=== PATIENT | male | born 1965 | race African-American/Black ===

== ENCOUNTER 2018-05-12 11:07 | Emergency (ER) | payer MEDICARE, MEDICAID ==
[2018-05-12] MEDS ORDERED: NORMAL SALINE 500 ML IV ONE (11:38)
[2018-05-12] MEDS ORDERED: ONDANSETRON HCL INJ/PF 4 MG/2 ML SDV IV ONE (11:40)
[2018-05-12] MEDS ORDERED: KETOROLAC TROMETHAMINE INJ/PF 30 MG/1 ML SDV IV ONE (11:41)
--- NOTE | 2018-05-12 11:43 | ER Document Report ---
ED Medical Screen (RME) - General Chief Complaint: Flank Pain Stated Complaint: LEFT SIDE PAIN, HEAD PAIN Time Seen by Provider: 05/12/18 11:34 Mode of Arrival: Ambulatory Information source: Patient Notes: Patient complained of left flank pain which has all been going for the past 1 week associated with nausea and vomiting. Patient denies chest pain or shortness of breath. I have greeted and performed a rapid initial assessment of this patient. A comprehensive ED assessment and evaluation of the patient, analysis of test results and completion of the medical decision making process will be conducted by additional ED providers. TRAVEL OUTSIDE OF THE [place] IN LAST 30 DAYS: No - Related Data Allergies/Adverse Reactions: No Known Allergies Allergy (Unverified 05/12/18 11:07) Past Medical History - Social History Chew tobacco use (# tins/day): No Frequency of alcohol use: None Drug Abuse: None Pulmonary Medical History: Reports: Hx Asthma Renal/ Medical History: Denies: Hx Peritoneal Dialysis GI Medical History: Reports: Hx Gastroesophageal Reflux Disease Psychiatric Medical History: Reports: Hx Bipolar Disorder Past Surgical History: Reports: Hx Abdominal Surgery, Hx Urinary Tract Surgery Physical Exam - Vital signs Vitals: Temp Pulse Resp BP Pulse Ox 98.5 F 105 H 19 125/81 99 05/12/18 11:11 05/12/18 11:11 05/12/18 11:11 05/12/18 11:11 05/12/18 11:11 Course - Vital Signs Vital signs: Temp Pulse Resp BP Pulse Ox 98.5 F 105 H 19 125/81 99 05/12/18 11:11 05/12/18 11:11 05/12/18 11:11 05/12/18 11:11 05/12/18 11:11 Doctor's Discharge - Discharge Referrals: LAURI ESCOBAR MD [Primary Care Provider] - Follow up as needed
[2018-05-12 12:12] LABS: ABSOLUTE EOSINOPHILS # (AUTO) 0.2 10^3/uL (0.0-0.6); ABSOLUTE LYMPHOCYTES (AUTO) 1.7 10^3/uL (0.5-4.7); ABSOLUTE MONOCYTES (AUTO) 0.7 10^3/uL (0.1-1.4); ABSOLUTE NEUT (AUTO) 4.5 10^3/uL (1.7-8.2); BASOPHILS % (AUTO) 0.6 % (0-2); EOSINOPHILS % (AUTO) 2.9 % (0-6); HEMATOCRIT 46.6 % (37.9-51.0); HEMOGLOBIN 16.1 g/dL (13.5-17.0); LYMPHOCYTES % (AUTO) 23.5 % (13-45); MEAN CORPUSCULAR HEMOGLOBIN 31.3 pg (27.0-33.4); MEAN CORPUSCULAR HGB CONC 34.5 g/dL (32.0-36.0); MEAN CORPUSCULAR VOLUME 91 fl (80-97); MONOCYTES % (AUTO) 10.2 % (3-13); PLATELET COUNT 293 10^3/uL (150-450); RED BLOOD COUNT 5.14 10^6/uL (4.35-5.55); RED CELL DISTRIBUTION WIDTH 14.7 % (11.5-14.0); SEGMENTED NEUTROPHILS % (AUTO) 62.8 % (42-78); TOTAL CELLS COUNTED % (AUTO) 100 %; WHITE BLOOD COUNT 7.1 10^3/uL (4.0-10.5)
[2018-05-12 12:30] LABS: APPEARANCE,URINE CLEAR; BILIRUBIN,URINE NEGATIVE (NEGATIVE); COLOR,URINE STRAW; GLUCOSE, URINE NEGATIVE (NEGATIVE); KETONES,URINE NEGATIVE (NEGATIVE); LEUKOCYTE ESTERASE,URINE TRACE (NEGATIVE); NITRITE,URINE NEGATIVE (NEGATIVE); PROTEIN,URINE 30 mg/dL (NEGATIVE); URINE SPECIFIC GRAVITY 1.025
[2018-05-12 12:39] LABS: ALANINE AMINOTRANSFERASE 20 U/L (21-72); ALBUMIN 4.5 g/dL (3.5-5.0); ALKALINE PHOSPHATASE 68 U/L (38-126); ANION GAP 6 (5-19); ASPARTATE AMINO TRANSFERASE 33 U/L (17-59); BILIRUBIN,DIRECT 0.4 mg/dL (0.0-0.4); BILIRUBIN,TOTAL 0.8 mg/dL (0.2-1.3); BLOOD UREA NITROGEN 17 mg/dL (7-20); CALCIUM 10.1 mg/dL (8.4-10.2); CARBON DIOXIDE 29 mmol/L (22-30); CHLORIDE 106 mmol/L (98-107); GLUCOSE 93 mg/dL (75-110); LIPASE 42.5 U/L (23-300); POTASSIUM 4.4 mmol/L (3.6-5.0); SODIUM 140.8 mmol/L (137-145); TOTAL PROTEIN 8.4 g/dL (6.3-8.2)
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
--- NOTE | 2018-05-12 14:19 | RADIOLOGY REPORT (SQ) ---
EXAM DESCRIPTION: ACUTE ABDOMEN SERIES COMPLETED DATE/TIME: 05/12/2018 1:48 pm REASON FOR STUDY: left flank and abdominal pain COMPARISON: None. NUMBER OF VIEWS: Three views. TECHNIQUE: Frontal chest, supine abdomen and upright abdomen radiographic images acquired. LIMITATIONS: None. FINDINGS: CHEST: Lungs clear of infiltrates. No cardiomegaly. No pneumothorax or pleural effusion. FREE AIR: None. No abnormal gas collections. BOWEL GAS PATTERN: Nonobstructive nonspecific pattern. No dilated loops or air fluid levels. CALCIFICATIONS: No suspicious calcifications. HARDWARE: None in the abdomen. SOFT TISSUES: No gross mass or suggestion of organomegaly. BONES: No acute fracture. No worrisome bone lesions. OTHER: No other significant finding. IMPRESSION: NO RADIOGRAPHIC EVIDENCE FOR ACUTE ABDOMINAL DISEASE. TECHNICAL DOCUMENTATION: JOB ID: [id number] [employer]- All Rights Reserved Reading location - IP/workstation name: [email or web address]
[2018-05-12] MEDS ORDERED: ONDANSETRON ODT 4 MG TAB (6 TAB/ER DISP) ONE (16:13)
[2018-05-12] MEDS ORDERED: ONDANSETRON ODT 4 MG TAB (6 TAB/ER DISP) PO PRN (16:24)
[2018-05-12 20:23] VITALS: BP 118/58
== END 2018-05-12 16:30 | disposition home or self-care (01) ==
LOC: ER 11:07
DX: R10.9 Unspecified abdominal pain (principal); R51 Headache; R11.2 Nausea with vomiting, unspecified; J45.909 Unspecified asthma, uncomplicated
CPT/HCPCS: 99284; 96361; 96374; 36415; 87086; 83690; 85025; 80053; 81001; 74022; J1885; J2405; A9270

== ENCOUNTER 2018-12-10 09:49 | Day surgery (SDC) | payer MEDICARE, MEDICAID ==
[~2018-12-10 09:49] MED LIST: PROPOFOL INJ 200 MG/20 ML VIAL IV ONE
[2018-12-10 12:20] VITALS: BP 115/72
--- NOTE | 2018-12-10 12:53 | Operative Report ---
Operative Report DATE OF SURGERY: 12/10/18 Operative Report: The risks, benefits and alternatives of the procedure including the risk of bleeding, perforation requiring surgery have been explained to the patient in detail and informed consent has been obtained. Patient was taken back to the endoscopy suite and placed in a left, lateral decubital position. Timeout was called. Propofol medication is administered. A rectal examination is done which did not reveal any masses, tears or fissures. An Olympus videoscope was introduced into the patient's rectum. Scope was then carefully advanced all the way to the cecum. Cecum was identified by the usual anatomical landmarks including the ileocecal valve as well as the appendiceal office. Photodocumentation was obtained. Scope was then sequentially pulled back via the rest segments of the colon including the ascending colon, hepatic flexure, transverse colon, splenic flexure, descending colon and finally into the rectosigmoid portions of the colon. Retroflexion maneuver was performed. Patient has an inadequate prep. PREOPERATIVE DIAGNOSIS: Personal history of polyps POSTOPERATIVE DIAGNOSIS: Due to the prep presence or absence of polyps cannot be commented. Random biopsies taken of the right side of the colon. Internal hemorrhoids OPERATION: Colonoscopy with biopsy SURGEON: SIMONE MAYA ANESTHESIA: LMAC TISSUE REMOVED OR ALTERED: As noted above. COMPLICATIONS: None. ESTIMATED BLOOD LOSS: None. INTRAOPERATIVE FINDINGS: As noted above. PROCEDURE: Patient tolerated the procedure well. No immediate postprocedure complications are noted. Patient discharged in good condition. Discharge date 12/10/2018. Discharge diet: Regular. Discharge activity: Regular. 2-3-week follow-up to discuss findings. Patient is instructed to call the office or proceed to the emergency room should there be any further proximal questions. Wait on the pathology. Given the inadequate prep I would recommend a 1 year surveillance colonoscopy.
--- NOTE | 2018-12-10 20:04 | EKG REPORT ---
SEVERITY:- ABNORMAL ECG - SINUS RHYTHM FIRST DEGREE AV BLOCK : Confirmed by: Malini Madrid MD 10-Dec-2018 20:04:11
== END 2018-12-10 12:10 | disposition home or self-care (01) ==
LOC: END 09:49
PROVIDERS: ATTEND Internal Medicine Gastroenterology
DX: Z12.11 Encounter for screening for malignant neoplasm of colon (principal); K64.8 Other hemorrhoids; J45.909 Unspecified asthma, uncomplicated; E11.9 Type 2 diabetes mellitus without complications; R06.00 Dyspnea, unspecified; D64.9 Anemia, unspecified; G80.9 Cerebral palsy, unspecified; I49.9 Cardiac arrhythmia, unspecified
CPT/HCPCS: 45380; 88305 ×2; 93005; 93010; J2704; 811

== ENCOUNTER → 2019-01-29 | Outpatient (CLI) | payer MEDICARE, MEDICAID ==
[2019-01-29 13:17] LABS: ABSOLUTE EOSINOPHILS # (AUTO) 0.1 10^3/uL (0.0-0.6); ABSOLUTE LYMPHOCYTES (AUTO) 1.5 10^3/uL (0.5-4.7); ABSOLUTE MONOCYTES (AUTO) 0.5 10^3/uL (0.1-1.4); ABSOLUTE NEUT (AUTO) 2.3 10^3/uL (1.7-8.2); BASOPHILS % (AUTO) 0.6 % (0-2); EOSINOPHILS % (AUTO) 2.8 % (0-6); HEMATOCRIT 46.2 % (37.9-51.0); HEMOGLOBIN 15.7 g/dL (13.5-17.0); LYMPHOCYTES % (AUTO) 33.6 % (13-45); MEAN CORPUSCULAR HEMOGLOBIN 30.6 pg (27.0-33.4); MEAN CORPUSCULAR VOLUME 90 fl (80-97); MONOCYTES % (AUTO) 10.8 % (3-13); PLATELET COUNT 275 10^3/uL (150-450); RED BLOOD COUNT 5.14 10^6/uL (4.35-5.55); RED CELL DISTRIBUTION WIDTH 14.5 % (11.5-14.0); SEGMENTED NEUTROPHILS % (AUTO) 52.2 % (42-78); TOTAL CELLS COUNTED % (AUTO) 100 %; WHITE BLOOD COUNT 4.4 10^3/uL (4.0-10.5)
[2019-01-29 13:40] LABS: ALANINE AMINOTRANSFERASE 12 U/L (21-72); ALBUMIN 4.5 g/dL (3.5-5.0); ALKALINE PHOSPHATASE 70 U/L (38-126); ANION GAP 9 (5-19); ASPARTATE AMINO TRANSFERASE 24 U/L (17-59); BILIRUBIN,DIRECT 0.2 mg/dL (0.0-0.4); BILIRUBIN,TOTAL 0.5 mg/dL (0.2-1.3); BLOOD UREA NITROGEN 16 mg/dL (7-20); CALCIUM 10.8 mg/dL (8.4-10.2); CARBON DIOXIDE 30 mmol/L (22-30); CHLORIDE 103 mmol/L (98-107); CHOLESTEROL 211.01 mg/dL (0-200); GLUCOSE 85 mg/dL (75-110); POTASSIUM 5.2 mmol/L (3.6-5.0); SODIUM 141.6 mmol/L (137-145); TOTAL PROTEIN 7.8 g/dL (6.3-8.2); TRIGLYCERIDES 55 mg/dL (<150)
[2019-01-29 13:51] LABS: DIRECT LDL 108 mg/dL (<100)
[2019-01-29 13:53] LABS: FREE T4 (FREE THYROXINE) 1.18 ng/dL (0.78-2.19)
[2019-01-29 14:07] LABS: THYROID STIMULATING HORMONE 0.06 uIU/mL (0.47-4.68)
== END ==
LOC: OD 11:57
PROVIDERS: ATTEND Psychiatry & Neurology Psychiatry
DX: F31.9 Bipolar disorder, unspecified (principal); Z79.899 Other long term (current) drug therapy
CPT/HCPCS: 36415; 80048; 80076; 82465; 83036; 83721; 84439; 84443; 84478; 85025

== ENCOUNTER 2019-06-11 19:33 | Inpatient (IN) | payer MEDICARE, MEDICAID ==
[2019-06-11] MEDS ORDERED: ACETAMINOPHEN 325 MG TABLET PO ONE (20:14)
[2019-06-11] MEDS ORDERED: NORMAL SALINE IV ONE (20:18)
[2019-06-11] MEDS ORDERED: PIPERACILLIN/TAZOBACTAM 3.375 GM VIAL IV ONE (20:18)
[2019-06-11] MEDS ORDERED: ONDANSETRON HCL INJ/PF 4 MG/2 ML SDV IV ONE (20:20)
--- NOTE | 2019-06-11 20:25 | ER Document Report ---
ED General - General Chief Complaint: Vomiting Stated Complaint: VOMITING,CHILLS,FEVER Time Seen by Provider: 06/11/19 19:59 Primary Care Provider: REHAN FERRO MD [Primary Care Provider] - Follow up as needed TRAVEL OUTSIDE OF THE [place] IN LAST 30 DAYS: No - HPI Notes: This is a 53-year-old gentleman who presented with a complaint of fever, cough, congestion, nausea, vomiting, left lower quadrant abdominal pain for the past 3 to 4 days. His cough is productive of clear sputum. Patient denies any diarrhea or constipation. He describes his symptoms as moderate. Patient states he has not been able to keep anything down. There are no obvious aggravating or relieving factors. He denies any recent sick contacts. He denies any recent foreign travel. - Related Data Allergies/Adverse Reactions: No Known Allergies Allergy (Verified 12/10/18 10:51) Past Medical History - Social History Smoking Status: Never Smoker Frequency of alcohol use: None Drug Abuse: None Lives with: Family Family History: Reviewed & Not Pertinent - Past Medical History Cardiac Medical History: Reports: Hx Hypertension Denies: Hx Coronary Artery Disease, Hx Heart Attack Pulmonary Medical History: Reports: Hx Asthma Denies: Hx Bronchitis, Hx COPD, Hx Pneumonia Neurological Medical History: Denies: Hx Cerebrovascular Accident, Hx Seizures Renal/ Medical History: Denies: Hx Peritoneal Dialysis GI Medical History: Reports: Hx Gastroesophageal Reflux Disease Musculoskeletal Medical History: Denies Hx Arthritis Psychiatric Medical History: Reports: Hx Bipolar Disorder Past Surgical History: Reports: Hx Abdominal Surgery, Hx Kidney (Renal Surgery) - nephrectomy, Hx Urinary Tract Surgery - Immunizations Hx Diphtheria, Pertussis, Tetanus Vaccination: Yes Review of Systems - Review of Systems Constitutional: Fever Respiratory: Cough, Sputum Gastrointestinal: Abdominal pain, Nausea, Vomiting. denies: Abdomen distended, Diarrhea, Constipation Musculoskeletal: denies: Back pain Neurological/Psychological: denies: Headaches -: Yes All other systems reviewed and negative Physical Exam - Vital signs Vitals: Temp Pulse Resp BP Pulse Ox 102.5 F H 143 H 16 126/79 H 98 06/11/19 19:45 06/11/19 19:45 06/11/19 19:45 06/11/19 19:45 06/11/19 19:45 Interpretation: Tachycardic - General In distress: None - Respiratory Respiratory status: No respiratory distress Breath sounds: Rhonchi - Rhonchi in the left lung base. - Cardiovascular Rhythm: Regular, Tachycardia Heart sounds: Normal auscultation Murmur: No - Abdominal Inspection: Normal Distension: No distension Bowel sounds: Normal Tenderness: Tender - There is left lower quadrant and left upper quadrant tenderness to palpation. No guarding or rebound. Organomegaly: No organomegaly - Extremities General upper extremity: Normal inspection, Nontender, Normal color, Normal ROM, Normal temperature General lower extremity: Normal inspection, Nontender, Normal color. No: Alejandro's sign - Neurological Neuro grossly intact: Yes Cognition: Normal Orientation: AAOx4 [place] Coma Scale Eye Opening: Spontaneous [place] Coma Scale Verbal: Oriented Liza Coma Scale Motor: Obeys Commands Liza Coma Scale Total: 15 Speech: Normal Motor strength normal: LUE, RUE, LLE, RLE Sensory: Normal - Skin Skin Temperature: Warm Skin Moisture: Dry Skin Color: Normal Course - Re-evaluation Re-evalutation: 06/11/19 20:24 Differential diagnosis includes diverticulitis versus pneumonia versus UTI. Given fever and tachycardia, and will need to rule out early sepsis. Will start sepsis protocol and empirically cover with Zosyn for suspected intra-abdominal source. 06/11/19 21:37 Patient reevaluated. He feels better. 06/11/19 23:00 Patient reevaluated. Patient is doing well. Labs and CT reviewed. Will admit him for IV antibiotics for acute pyelonephritis. Patient's care discussed with Dr. Colbert. Will admit the patient. - Vital Signs Vital signs: Temp Pulse Resp BP Pulse Ox 100.3 F 143 H 22 H 138/92 H 99 06/11/19 22:47 06/11/19 19:45 06/11/19 22:00 06/11/19 20:01 06/11/19 22:00 - Laboratory Result Diagrams: 06/11/19 20:15 06/11/19 20:15 Laboratory results interpreted by me: 06/11/19 06/11/19 06/11/19 20:15 20:15 20:45 WBC 28.5 H RDW 15.1 H Seg Neuts % (Manual) 90 H Lymphocytes % (Manual) 6 L Abs Neuts (Manual) 25.7 H Sodium 132.5 L Glucose 138 H Calcium 10.5 H Lipase 11.9 L Urine Protein 100 H Urine Ketones 20 H Urine Blood MODERATE H Urine Nitrite (Reflex) POSITIVE H Urine Urobilinogen 2.0 H Leukocyte Esterase Rfl LARGE H Discharge - Discharge Clinical Impression: Acute pyelonephritis Condition: Stable Disposition: ADMITTED INPATIENT Admitting Provider: Sayra (Hospitalist) Unit Admitted: Medical Floor Referrals: REHAN FERRO MD [Primary Care Provider] - Follow up as needed
[2019-06-11 20:33] LABS: HEMATOCRIT 45.3 % (37.9-51.0); HEMOGLOBIN 15.6 g/dL (13.5-17.0); MEAN CORPUSCULAR HEMOGLOBIN 31.2 pg (27.0-33.4); MEAN CORPUSCULAR HGB CONC 34.4 g/dL (32.0-36.0); MEAN CORPUSCULAR VOLUME 91 fl (80-97); PLATELET COUNT 228 10^3/uL (150-450); RED BLOOD COUNT 4.99 10^6/uL (4.35-5.55); RED CELL DISTRIBUTION WIDTH 15.1 % (11.5-14.0); WHITE BLOOD COUNT 28.5 10^3/uL (4.0-10.5)
[2019-06-11 20:45] LABS: ALBUMIN 4.2 g/dL (3.5-5.0); ALKALINE PHOSPHATASE 101 U/L (38-126); ANION GAP 10 (5-19); ASPARTATE AMINO TRANSFERASE 28 U/L (17-59); BILIRUBIN,DIRECT 0.1 mg/dL (0.0-0.4); BLOOD UREA NITROGEN 15 mg/dL (7-20); CALCIUM 10.5 mg/dL (8.4-10.2); CARBON DIOXIDE 25 mmol/L (22-30); CHLORIDE 98 mmol/L (98-107); GLUCOSE 138 mg/dL (75-110); POTASSIUM 4.4 mmol/L (3.6-5.0); TOTAL PROTEIN 7.8 g/dL (6.3-8.2)
[2019-06-11 21:08] LABS: APPEARANCE,URINE CLOUDY; BILIRUBIN,URINE NEGATIVE (NEGATIVE); COLOR,URINE AMBER; GLUCOSE, URINE NEGATIVE (NEGATIVE); KETONES,URINE 20 mg/dL (NEGATIVE); PROTEIN,URINE 100 mg/dL (NEGATIVE); URINE SPECIFIC GRAVITY 1.024
[2019-06-11 21:18] LABS: ABSOLUTE LYMPHOCYTES# (MANUAL) 1.7 10^3/uL (0.5-4.7); ABSOLUTE MONOCYTES # (MANUAL) 1.1 10^3/uL (0.1-1.4); ANISOCYTOSIS 1+; BASOPHILS % (MANUAL) 0 % (0-2); EOSINOPHILS % (MANUAL) 0 % (0-6); LYMPHOCYTES % (MANUAL) 6 % (13-45); MONOCYTES % (MANUAL) 4 % (3-13); PLATELET COMMENT ADEQUATE; SEGMENTED NEUTROPHILS % (MAN) 90 % (42-78); TOTAL CELLS COUNTED 100; TOXIC GRANULATION 1+; TOXIC VACUOLATION PRESENT
--- NOTE | 2019-06-11 21:35 | RADIOLOGY REPORT (SQ) ---
EXAM DESCRIPTION: [facility]: XR CHEST 1 VIEW CLINICAL HISTORY: 53 years Male, Fever, tachycardia, cough. COMPARISON: 05/12/2018 FINDINGS: Lungs are clear, with no focal infiltrate, pneumothorax, or pleural effusion. Mediastinum is within normal limits for this positioning. There is a mild dextrocurvature of the thoracic spine, unchanged. No acute bone findings. IMPRESSION: 1. No acute pulmonary findings.
--- NOTE | 2019-06-11 21:43 | EKG REPORT ---
SEVERITY:- ABNORMAL ECG - SINUS TACHYCARDIA FIRST DEGREE AV BLOCK : Confirmed by: Fortino Reyes 11-Jun-2019 21:42:26
--- NOTE | 2019-06-11 22:13 | RADIOLOGY REPORT (SQ) ---
EXAM DESCRIPTION: CT abdomen pelvis with IV contrast. TECHNIQUE: 100 mL Omnipaque 350. Sagittal coronal reconstruction. This exam was performed according to our departmental dose-optimization program, which includes automated exposure control, adjustment of the mA and/or kV according to patient size and/or use of iterative reconstruction technique.. CLINICAL HISTORY: 53 years Male LLQ tenderness ? Diverticulitis COMPARISON: None FINDINGS: Lung bases without acute abnormality. Incidental bilateral posterior congenital Bochdalek hernias with mild herniation of fat. Liver, spleen, pancreas, biliary system, are unremarkable. Question very subtle nodularity of the left adrenal gland. Right adrenal glands unremarkable. Moderately atherosclerotic aorta without significant dilatation or narrowing. Please mild atherosclerotic disease at the origin of the celiac artery. Kidneys are demonstrated without suspicious solid lesion. There is a 2 x 1.5 mm nonobstructing stone in the midpole of the right kidney. There is no hydronephrosis.. There is minimal low density in the upper pole of the left kidney which may represent a small cyst, scarring even small old infarction. Both kidneys demonstrate very homogenous parenchymal enhancement. This is probably normal given the phase of scanning. This is less likely manifestation of ATN. Suggest clinical correlation. No suspicious bowel abnormalities. Mild increased colonic stool. Majority of the lumbar spine is unremarkable. There is transitional anatomy in the lumbosacral junction with pseudoarthrosis bilaterally between L5 and the sacrum. Greater sclerosis on the left. Series 601 images 46-48. CT of the pelvis demonstrates fecal impaction in the rectum. Enlarged prostate which measures 6.9 x 4.6 x 4.5 cm. Multiple prostatic stones. Significant wall thickening of the urinary bladder. Presence of a single bladder stone suspicious left of the midline that measures 4 x 3 mm. No suspicious mass. IMPRESSION: 1. Enlarged prostate for age. Multiple prostatic stones. Abnormal thickened urinary bladder wall, acute versus chronic. Incidental single small bladder stone. 2. Single small nonobstructing right kidney stone. Hypodensity in the upper pole of the left kidney may represent a small cyst or scar/old infarction. The enhancement pattern of the kidneys is unusually homogenous. Probably incidental finding because of phase of imaging. Less likely ATN. Suggest clinical correlation. 3. Fecal impaction in the rectum. Mildly dilated colon with increased stool. No evidence for diverticulitis. 4. Atherosclerotic disease. 5. Very subtle nodularity of left adrenal gland is nonspecific and statistically most likely a tiny adenoma. 6. Transitional anatomy in the lumbosacral junction which can be symptomatic as discussed above.
[2019-06-12] MEDS ORDERED: TEMAZEPAM 15 MG CAPSULE PO PRN (01:02)
[2019-06-12] MEDS ORDERED: MAGNESIUM HYDROXIDE SUSP 30 ML UDCUP PO PRN (01:02)
[2019-06-12] MEDS ORDERED: MAG HYDROX/AL HYDROX/SIMETH SUSP 30 ML UDCUP PO PRN (01:02)
[2019-06-12] MEDS ORDERED: ONDANSETRON 4 MG TAB.RAPDIS PO PRN (01:02)
[2019-06-12] MEDS ORDERED: LEVALBUTEROL HCL NEB 0.63 MG/3 ML AMPUL NEB PRN (01:02)
[2019-06-12] MEDS ORDERED: GUAIFENESIN SYRP 200 MG/10 ML UDC PO PRN (01:06)
[2019-06-12] MEDS ORDERED: IBUPROFEN 800 MG TABLET PO PRN (01:07)
[2019-06-12] MEDS ORDERED: HYDRALAZINE HCL INJ/PF 20 MG/1 ML SDV IV PRN (01:07)
[2019-06-12] MEDS ORDERED: ACETAMINOPHEN 325 MG TABLET PO PRN (01:07)
[2019-06-12] MEDS ORDERED: MEROPENEM 1 GM VIAL IV SCH (01:15)
[2019-06-12] MEDS ORDERED: MEROPENEM 1 GM VIAL IV PRN (01:31)
[2019-06-12] MEDS: RINGERS SOLUTION,LACTATED 1,000 ML IV PRN ×2 (01:57→23:15)
[2019-06-12] MEDS: NALBUPHINE HCL INJ 10 MG/1 ML AMPULE IV PRN ×4 (02:38→20:04)
[2019-06-12 02:43] LABS: FREE T3 3.4 pg/mL (2.77-5.27); FREE T4 (FREE THYROXINE) 1.45 ng/dL (0.78-2.19)
[2019-06-12 02:56] LABS: THYROID STIMULATING HORMONE 1.37 uIU/mL (0.47-4.68)
--- NOTE | 2019-06-12 03:24 | PDOC H&P ---
History of Present Illness Admission Date/PCP: 06/11/19 23:11 REHAN FERRO MD Patient complains of: Abdominal pain History of Present Illness: SERVANDO MONACO is a 53 year old male who presented to the emergency room with a 4-day history of abdominal pain. Patient admits progressively worsening left lower quadrant/left flank pain for the last 4 days. The pain is a constant jordana p stabbing/cramping of moderate intensity in the left lower quadrant and flank without radiation. The pain has been associated with a subjective fever, severe nausea with vomiting. The pain has been accompanied by a mild cough productive of clear sputum. He denies other associated or accompanying signs and symptoms. He denies prior similar episodes and he has not identified any aggravating or ameliorating factors for his abdominal pain. In the emergency room he was found to have left lower quadrant and flank tenderness with an elevated white blood cell count of 28,[address] of the abdomen and pelvis revealed mild enlargement of the prostate but no evidence of diverticulitis. Blood and urine cultures were obtained, antibiotic therapy was initiated and the patient was subsequently admitted to the hospital for further evaluation treatment. Past Medical History Cardiac Medical History: Reports: Hypertension Denies: Coronary Artery Disease, Myocardial Infarction Pulmonary Medical History: Reports: Asthma Denies: Bronchitis, Chronic Obstructive Pulmonary Disease (COPD), Pneumonia EENT Medical History: Denies: Cataracts, Ears - Hearing aids Neurological Medical History: Denies: Hemorrhagic CVA, Ischemic CVA, Seizures Endocrine Medical History: Denies: Diabetes Mellitus Type 1, Diabetes Mellitus Type 2, Hyperthyroidism, Hypothyroidism, Obesity Renal/ Medical History: Denies: Chronic Kidney Disease, Nephrolithiasis Malignancy Medical History: Reports: None GI Medical History: Reports: Gastroesophageal Reflux Disease Denies: Cirrhosis, Hepatitis Musculoskeltal Medical History: Denies: Arthritis, Gout Skin Medical History: Denies: Eczema, Psoriasis Psychiatric Medical History: Reports: Bipolar Disorder Denies: Alcohol Dependency, Substance Abuse, Tobacco Dependency Traumatic Medical History: Reports: None Hematology: Reports: Anemia Denies: Bleeding Tendencies Infectious Medical History: Reports: None Past Surgical History Past Surgical History: Reports: None Social History Information Source: Patient Lives with: Family Smoking Status: Never Smoker Electronic Cigarette use?: No Frequency of Alcohol Use: None Hx Recreational Drug Use: No Drugs: None Hx Prescription Drug Abuse: No - Advance Directive Resuscitation Status: Full Code Surrogate healthcare decision maker:: Rossana Goinsnasrosa Family History Family History: Hypertension, Other - Asthma Parental Family History Reviewed: Yes Children Family History Reviewed: No Sibling(s) Family History Reviewed.: Yes Medication/Allergy Home Medications: Albuterol Sulfate [Proair HFA Inhalation Aerosol 8.5 gm MDI] 1 puff IH Q4HP PRN 06/12/19 Aripiprazole [Abilify 15 mg Tablet] 15 mg PO DAILY 06/12/19 Gabapentin [Neurontin 100 mg Capsule] 100 mg PO Q12 06/12/19 Methimazole [Tapazole 5 mg Tablet] 5 mg PO BID 06/12/19 Tramadol HCl [Ultram 50 mg Tablet] 50 mg PO Q12HP PRN 06/12/19 Allergies/Adverse Reactions: No Known Allergies Allergy (Verified 12/10/18 10:51) Review of Systems Constitutional: PRESENT: as per HPI, fever(s). ABSENT: chills Eyes: ABSENT: visual disturbances, other - Eye pain Ears: ABSENT: hearing changes, other - Ear pain Nose, Mouth, and Throat: ABSENT: mouth pain, sore throat Cardiovascular: ABSENT: chest pain, palpitations Respiratory: PRESENT: as per HPI, cough, sputum - Clear Gastrointestinal: PRESENT: as per HPI, abdominal pain, nausea, vomiting. ABSENT: constipation, diarrhea Genitourinary: ABSENT: dysuria, hematuria Musculoskeletal: PRESENT: as per HPI, back pain - Left flank pain. ABSENT: joint swelling, muscle weakness Integumentary: ABSENT: pruritus, rash Neurological: ABSENT: confusion, convulsions, focal weakness, memory loss, syncope Psychiatric: ABSENT: anxiety, depression Endocrine: ABSENT: cold intolerance, heat intolerance Hematologic/Lymphatic: ABSENT: easy bleeding, easy bruising Allergic/Immunologic: ABSENT: seasonal rhinorrhea Physical Exam Vital Signs: Temp Pulse Resp BP Pulse Ox 100.3 F 143 H 22 H 138/92 H 99 06/11/19 22:47 06/11/19 19:45 06/11/19 22:00 06/11/19 20:01 06/11/19 22:00 Intake & Output 06/09/19 06/10/19 06/11/19 23:59 23:59 23:59 Intake Total 1776 Balance 1776 Weight 64.2 kg General appearance: PRESENT: no acute distress, cooperative Head exam: PRESENT: atraumatic, normocephalic Eye exam: PRESENT: conjunctiva pink. ABSENT: conjunctival injection, scleral icterus Ear exam: PRESENT: normal external ear exam. ABSENT: bleeding, drainage Mouth exam: PRESENT: dry mucosa, neck supple Neck exam: ABSENT: thyromegaly, tracheal deviation Respiratory exam: PRESENT: clear to auscultation patricio, symmetrical, unlabored Cardiovascular exam: PRESENT: RRR. ABSENT: clicks, gallop, rubs Pulses: PRESENT: normal radial pulses, normal dorsalis pedis pul Vascular exam: PRESENT: normal capillary refill. ABSENT: pallor GI/Abdominal exam: PRESENT: normal bowel sounds, soft, tenderness - Left lower quadrant and left flank with moderate tenderness on palpation and percussion. Rectal exam: PRESENT: deferred Extremities exam: ABSENT: joint swelling, pedal edema Musculoskeletal exam: ABSENT: deformity, dislocation Neurological exam: PRESENT: alert, oriented to person, oriented to place, oriented to time, CN II-XII grossly intact. ABSENT: motor sensory deficit Psychiatric exam: PRESENT: appropriate affect, normal mood Skin exam: PRESENT: dry, intact, warm. ABSENT: jaundice, rash, urticaria Results Laboratory Results: 06/11/19 20:15 06/11/19 20:15 06/11/19 06/11/19 06/11/19 20:15 20:15 20:15 WBC 28.5 H RBC 4.99 Hgb 15.6 Hct 45.3 MCV 91 MCH 31.2 MCHC 34.4 RDW 15.1 H Plt Count 228 Seg Neutrophils % Not Reportable Sodium 132.5 L Potassium 4.4 Chloride 98 Carbon Dioxide 25 Anion Gap 10 BUN 15 Creatinine 0.99 Est GFR ( Amer) > 60 Glucose 138 H Lactic Acid 1.2 Calcium 10.5 H Total Bilirubin 1.0 AST 28 Alkaline Phosphatase 101 Total Protein 7.8 Albumin 4.2 Lipase 11.9 L Urine Color Urine Appearance Urine pH Ur Specific [place] Urine Protein Urine Glucose (UA) Urine Ketones Urine Blood Urine RBC (Auto) 06/11/19 20:45 WBC RBC Hgb Hct MCV MCH MCHC RDW Plt Count Seg Neutrophils % Sodium Potassium Chloride Carbon Dioxide Anion Gap BUN Creatinine Est GFR ( Amer) Glucose Lactic Acid Calcium Total Bilirubin AST Alkaline Phosphatase Total Protein Albumin Lipase Urine Color SEFERINO Urine Appearance CLOUDY Urine pH 6.0 Ur Specific [place] 1.024 Urine Protein 100 H Urine Glucose (UA) NEGATIVE Urine Ketones 20 H Urine Blood MODERATE H Urine RBC (Auto) 12 Impressions: Chest X-Ray 06/11/19 20:14 IMPRESSION: 1. No acute pulmonary findings. Abdomen/Pelvis CT 06/11/19 20:18 IMPRESSION: 1. Enlarged prostate for age. Multiple prostatic stones. Abnormal thickened urinary bladder wall, acute versus chronic. Incidental single small bladder stone. 2. Single small nonobstructing right kidney stone. Hypodensity in the upper pole of the left kidney may represent a small cyst or scar/old infarction. The enhancement pattern of the kidneys is unusually homogenous. Probably incidental finding because of phase of imaging. Less likely ATN. Suggest clinical correlation. 3. Fecal impaction in the rectum. Mildly dilated colon with increased stool. No evidence for diverticulitis. 4. Atherosclerotic disease. 5. Very subtle nodularity of left adrenal gland is nonspecific and statistically most likely a tiny adenoma. 6. Transitional anatomy in the lumbosacral junction which can be symptomatic as discussed above. Assessment and Plan - Diagnosis (1) Acute pyelonephritis Is this a current diagnosis for this admission?: Yes Plan: Patient be treated with IV antibiotics utilizing meropenem as the patient is noted to have a nitrite positive urinalysis. Given his history of fever and white blood count 28,000 treatment with a very broad-spectrum antibiotic is appropriate. Daily CBCs, magnesium levels and metabolic profiles will be followed as part of his evaluation. He will receive Nubain 5 to 10 mg IV every 3 hours on a as needed basis for control of his pain using a sliding scale for dosing. (2) Gastroesophageal reflux disease Qualifiers: Esophagitis presence: esophagitis presence not specified Qualified Code(s): K21.9 - Gastro-esophageal reflux disease without esophagitis Is this a current diagnosis for this admission?: Yes Plan: Patient will be maintained on Protonix 40 mg p.o. twice daily during his hospi adriana stay. (3) Asthma Qualifiers: Asthma severity: mild Asthma persistence: intermittent Asthma complication type: unspecified Qualified Code(s): J45.20 - Mild intermittent asthma, uncomplicated Is this a current diagnosis for this admission?: Yes Plan: Patient will have available nebulizer therapy utilizing Xopenex 0.63 milliliters every 2 hours on a as needed basis (4) Hypertension Qualifiers: Hypertension type: essential hypertension Qualified Code(s): I10 - Essential (primary) hypertension Is this a current diagnosis for this admission?: Yes Plan: Patient's blood pressure be assessed frequently throughout his hospital course and antihypertensive therapy will be administered as required. (5) Bipolar disorder Qualifiers: Active/Remission status: in full remission Most recent bipolar episode type: most recent episode unspecified type Qualified Code(s): F31.70 - Bipolar disorder, currently in remission, most recent episode unspecified Is this a current diagnosis for this admission?: Yes Plan: Patient is not currently on any therapy at home. He will be observed during his hospital course and if appropriate a psychiatric consultation can be obtained. - Plan Summary Summary: 06/12/2019- Acute pyelonephritis-continue meropenem. Patient has a white count 28,000. Continue to follow labs may change plan of care as appropriate. Patient receiving Nubain for pain states adequate pain control. GERD-continue Protonix 40 g p.o. twice daily Asthma continue bronchodilators as needed Hypertension continue current therapy make change plan of care appropriate. Bipolar disorder-at this time not on any medications. Follow make change plan of care as appropriate. Refer to psychiatry as needed - Time Time Spent with patient: 25-34 minutes Medications reviewed and adjusted accordingly: Yes Anticipated discharge: Home - Inpatient Certification Based on my medical assessment, after consideration of the patient's comorbidities, presenting symptoms, or acuity I expect that the services needed warrant INPATIENT care.: Yes I certify that my determination is in accordance with my understanding of Medicare's requirements for reasonable and necessary INPATIENT services [42 CFR 412.3e].: Yes Medical Necessity: Need Close Monitoring Due to Risk of Patient Decompensation, Need for Pain Control, Need for IV Antibiotics, Risk of Complication if Not Cared For in Hospital
[2019-06-12] MEDS ORDERED: MEROPENEM 1 GM VIAL ONE (04:37)
[2019-06-12] MEDS: HEPARIN SOD (PORCINE) 5,000 UNIT/ML 1 ML VIAL SUBCUT SCH ×3 (05:35→21:19)
[2019-06-12] MEDS: PANTOPRAZOLE SODIUM 40 MG TABLET.DR PO SCH ×2 (05:35→17:04)
[2019-06-12] MEDS: MEROPENEM 1 GM in NORMAL SALINE 50 ML IV SCH ×3 (05:36→21:19)
--- NOTE | 2019-06-12 08:33 | PDOC PROGRESS REPORT ---
Subjective Progress Note for:: 06/12/19 Subjective:: 06/12/2019-no complaints this a.m. Reason For Visit: CELLULITIS RIGHT FOOT Physical Exam Vital Signs: Temp Pulse Resp BP Pulse Ox 99.1 F 91 16 120/56 L 100 06/12/19 01:48 06/12/19 01:48 06/12/19 01:48 06/12/19 01:48 06/12/19 01:48 Intake & Output 06/11/19 06/12/19 06/13/19 06:59 06:59 06:59 Intake Total 2126 Output Total 250 Balance 1876 Weight 67 kg General appearance: PRESENT: no acute distress, well-developed, well-nourished Head exam: PRESENT: atraumatic, normocephalic Eye exam: PRESENT: conjunctiva pink, EOMI, PERRLA. ABSENT: scleral icterus Ear exam: PRESENT: normal external ear exam Mouth exam: PRESENT: moist, tongue midline Neck exam: ABSENT: carotid bruit, JVD, lymphadenopathy, thyromegaly Respiratory exam: PRESENT: clear to auscultation patricio. ABSENT: rales, rhonchi, wheezes Cardiovascular exam: PRESENT: RRR. ABSENT: diastolic murmur, rubs, systolic murmur Pulses: PRESENT: normal dorsalis pedis pul Vascular exam: PRESENT: normal capillary refill GI/Abdominal exam: PRESENT: normal bowel sounds, soft. ABSENT: distended, gu arding, mass, organolmegaly, rebound, tenderness Rectal exam: PRESENT: deferred Gentrourinary exam: PRESENT: other - Left CVA tenderness Extremities exam: PRESENT: full ROM. ABSENT: calf tenderness, clubbing, pedal edema Neurological exam: PRESENT: alert, awake, oriented to person, oriented to place, oriented to time, oriented to situation, CN II-XII grossly intact. ABSENT: motor sensory deficit Psychiatric exam: PRESENT: appropriate affect, normal mood. ABSENT: homicidal ideation, suicidal ideation Skin exam: PRESENT: dry, intact, warm. ABSENT: cyanosis, rash Results Laboratory Results: 06/11/19 20:15 06/11/19 20:15 06/11/19 06/11/19 06/11/19 20:15 20:15 20:15 WBC 28.5 H RBC 4.99 Hgb 15.6 Hct 45.3 MCV 91 MCH 31.2 MCHC 34.4 RDW 15.1 H Plt Count 228 Seg Neutrophils % Not Reportable Sodium 132.5 L Potassium 4.4 Chloride 98 Carbon Dioxide 25 Anion Gap 10 BUN 15 Creatinine 0.99 Est GFR ( Amer) > 60 Glucose 138 H Lactic Acid 1.2 Calcium 10.5 H Total Bilirubin 1.0 AST 28 Alkaline Phosphatase 101 Total Protein 7.8 Albumin 4.2 Lipase 11.9 L TSH Free T4 Free T3 pg/mL Urine Color Urine Appearance Urine pH Ur Specific [place] Urine Protein Urine Glucose (UA) Urine Ketones Urine Blood Urine RBC (Auto) 06/11/19 06/11/19 20:15 20:45 WBC RBC Hgb Hct MCV MCH MCHC RDW Plt Count Seg Neutrophils % Sodium Potassium Chloride Carbon Dioxide Anion Gap BUN Creatinine Est GFR ( Amer) Glucose Lactic Acid Calcium Total Bilirubin AST Alkaline Phosphatase Total Protein Albumin Lipase TSH 1.37 Free T4 1.45 Free T3 pg/mL 3.40 Urine Color SEFERINO Urine Appearance CLOUDY Urine pH 6.0 Ur Specific [place] 1.024 Urine Protein 100 H Urine Glucose (UA) NEGATIVE Urine Ketones 20 H Urine Blood MODERATE H Urine RBC (Auto) 12 Impressions: Chest X-Ray 06/11/19 20:14 IMPRESSION: 1. No acute pulmonary findings. Abdomen/Pelvis CT 06/11/19 20:18 IMPRESSION: 1. Enlarged prostate for age. Multiple prostatic stones. Abnormal thickened urinary bladder wall, acute versus chronic. Incidental single small bladder stone. 2. Single small nonobstructing right kidney stone. Hypodensity in the upper pole of the left kidney may represent a small cyst or scar/old infarction. The enhancement pattern of the kidneys is unusually homogenous. Probably incidental finding because of phase of imaging. Less likely ATN. Suggest clinical correlation. 3. Fecal impaction in the rectum. Mildly dilated colon with increased stool. No evidence for diverticulitis. 4. Atherosclerotic disease. 5. Very subtle nodularity of left adrenal gland is nonspecific and statistically most likely a tiny adenoma. 6. Transitional anatomy in the lumbosacral junction which can be symptomatic as discussed above. Assessment and Plan - Plan Summary Summary: 06/12/2019- Acute pyelonephritis-continue meropenem. Patient has a white count 28,000. Continue to follow labs may change plan of care as appropriate. Patient receiving Nubain for pain states adequate pain control. GERD-continue Protonix 40 g p.o. twice daily Asthma continue bronchodilators as needed Hypertension continue current therapy make change plan of care appropriate. Bipolar disorder-at this time not on any medications. Follow make change plan of care as appropriate. Refer to psychiatry as needed - Time Time Spent with patient: 15-24 minutes - Inpatient Certification Based on my medical assessment, after consideration of the patient's comorbidities, presenting symptoms, or acuity I expect that the services needed warrant INPATIENT care.: Yes I certify that my determination is in accordance with my understanding of Medicare's requirements for reasonable and necessary INPATIENT services [42 CFR 412.3e].: Yes Medical Necessity: Other - IV antibiotics
[2019-06-12] MEDS: DOCUSATE SODIUM 100 MG CAPSULE PO SCH ×2 (10:35→17:04)
[2019-06-12] MEDS: ONDANSETRON HCL INJ/PF 4 MG/2 ML SDV IV PRN (16:46)
[2019-06-13] MEDS: ONDANSETRON HCL INJ/PF 4 MG/2 ML SDV IV PRN ×2 (02:18→21:24)
[2019-06-13] MEDS: NALBUPHINE HCL INJ 10 MG/1 ML AMPULE IV PRN ×2 (02:18→06:53)
[2019-06-13 04:19] LABS: HEMATOCRIT 35.4 % (37.9-51.0); MEAN CORPUSCULAR HEMOGLOBIN 31.1 pg (27.0-33.4); MEAN CORPUSCULAR HGB CONC 34.6 g/dL (32.0-36.0); MEAN CORPUSCULAR VOLUME 90 fl (80-97); PLATELET COUNT 180 10^3/uL (150-450); RED BLOOD COUNT 3.94 10^6/uL (4.35-5.55); RED CELL DISTRIBUTION WIDTH 14.8 % (11.5-14.0); WHITE BLOOD COUNT 13.3 10^3/uL (4.0-10.5)
[2019-06-13 04:32] LABS: BLOOD UREA NITROGEN 7 mg/dL (7-20); CALCIUM 8.8 mg/dL (8.4-10.2); CHOLESTEROL 148.42 mg/dL (0-200); GLUCOSE 107 mg/dL (75-110); POTASSIUM 3.8 mmol/L (3.6-5.0); TRIGLYCERIDES 120 mg/dL (<150)
[2019-06-13 04:37] LABS: CARBON DIOXIDE 28 mmol/L (22-30); CHLORIDE 100 mmol/L (98-107)
[2019-06-13 04:42] LABS: DIRECT LDL 71 mg/dL (<100)
[2019-06-13 04:49] LABS: ANION GAP 5 (5-19)
[2019-06-13 05:23] LABS: HEMOGLOBIN 12.2 g/dL (13.5-17.0)
[2019-06-13] MEDS: HEPARIN SOD (PORCINE) 5,000 UNIT/ML 1 ML VIAL SUBCUT SCH ×3 (05:47→21:15)
[2019-06-13] MEDS: PANTOPRAZOLE SODIUM 40 MG TABLET.DR PO SCH ×2 (05:47→18:05)
[2019-06-13] MEDS: MEROPENEM 1 GM in NORMAL SALINE 50 ML IV SCH (05:47)
[2019-06-13] MEDS: RINGERS SOLUTION,LACTATED 1,000 ML IV PRN (05:47)
[2019-06-13] MEDS ORDERED: INFLUENZA QUAD (6MOS+) 2019-20 VAC 0.5 ML SYR IM ONE (08:00)
--- NOTE | 2019-06-13 08:48 | PDOC PROGRESS REPORT ---
Subjective Progress Note for:: 06/13/19 Subjective:: 06/12/2019-no complaints this a.m. 06/13/2019-increased pain secondary to pyelonephritis Reason For Visit: CELLULITIS RIGHT FOOT Physical Exam Vital Signs: Temp Pulse Resp BP Pulse Ox 98.9 F 98 12 104/60 96 06/13/19 00:00 06/13/19 00:20 06/13/19 00:20 06/13/19 00:00 06/13/19 00:20 Intake & Output 06/12/19 06/13/19 06/14/19 06:59 06:59 06:59 Intake Total 2176 3512 Output Total 250 1375 Balance 1926 2137 Weight 67 kg 67 kg 67 kg General appearance: PRESENT: no acute distress, well-developed, well-nourished Head exam: PRESENT: atraumatic, normocephalic Eye exam: PRESENT: conjunctiva pink, EOMI, PERRLA. ABSENT: scleral icterus Ear exam: PRESENT: normal external ear exam Mouth exam: PRESENT: moist, tongue midline Neck exam: ABSENT: carotid bruit, JVD, lymphadenopathy, thyromegaly Respiratory exam: PRESENT: clear to auscultation patricio. ABSENT: rales, rhonchi, wheezes Cardiovascular exam: PRESENT: RRR. ABSENT: diastolic murmur, rubs, systolic murmur Pulses: PRESENT: normal dorsalis pedis pul Vascular exam: PRESENT: normal capillary refill GI/Abdominal exam: PRESENT: normal bowel sounds, soft. ABSENT: distended, guarding, mass, organolmegaly, rebound, tenderness Rectal exam: PRESENT: deferred Extremities exam: PRESENT: full ROM. ABSENT: calf tenderness, clubbing, pedal edema Neurological exam: PRESENT: alert, awake, oriented to person, oriented to place, oriented to time, oriented to situation, CN II-XII grossly intact. ABSENT: motor sensory deficit Psychiatric exam: PRESENT: appropriate affect, normal mood. ABSENT: homicidal ideation, suicidal ideation Skin exam: PRESENT: dry, intact, warm. ABSENT: cyanosis, rash Results Laboratory Results: 06/13/19 04:05 06/13/19 04:05 06/13/19 06/13/19 04:05 04:05 WBC 13.3 H RBC 3.94 L Hgb 12.2 L D Hct 35.4 L MCV 90 MCH 31.1 MCHC 34.6 RDW 14.8 H Plt Count 180 Sodium 132.6 L Potassium 3.8 Chloride 100 Carbon Dioxide 28 Anion Gap 5 BUN 7 Creatinine 0.71 Est GFR ( Amer) > 60 Glucose 107 Calcium 8.8 Magnesium 1.6 Triglycerides 120 Cholesterol 148.42 LDL Cholesterol Direct 71 VLDL Cholesterol 24.0 HDL Cholesterol 41 Impressions: Chest X-Ray 06/11/19 20:14 IMPRESSION: 1. No acute pulmonary findings. Abdomen/Pelvis CT 06/11/19 20:18 IMPRESSION: 1. Enlarged prostate for age. Multiple prostatic stones. Abnormal thickened urinary bladder wall, acute versus chronic. Incidental single small bladder stone. 2. Single small nonobstructing right kidney stone. Hypodensity in the upper pole of the left kidney may represent a small cyst or scar/old infarction. The enhancement pattern of the kidneys is unusually homogenous. Probably incidental finding because of phase of imaging. Less likely ATN. Suggest clinical correlation. 3. Fecal impaction in the rectum. Mildly dilated colon with increased stool. No evidence for diverticulitis. 4. Atherosclerotic disease. 5. Very subtle nodularity of left adrenal gland is nonspecific and statistically most likely a tiny adenoma. 6. Transitional anatomy in the lumbosacral junction which can be symptomatic as discussed above. Assessment and Plan - Plan Summary Summary: 06/12/2019- Acute pyelonephritis-continue meropenem. Patient has a white count 28,000. Continue to follow labs may change plan of care as appropriate. Patient receiving Nubain for pain states adequate pain control. GERD-continue Protonix 40 g p.o. twice daily Asthma continue bronchodilators as needed Hypertension continue current therapy make change plan of care appropriate. Bipolar disorder-at this time not on any medications. Follow make change plan of care as appropriate. Refer to psychiatry as needed 06/13/2019- acute pyelonephritis-cultures returned showing gram negative rods sensitivity has not returned at this point. White count improved I have DC'd meropenem and put patient on Rocephin 2 g IV daily. Await sensitivity GERD continue Protonix asthma-continue bronchodilators Hypertension stable continue to follow. Bipolar disorder-stable Pain-DC Nubain. Dilaudid 1 mg IV every 3 hours PRN. - Time Time Spent with patient: 15-24 minutes - Inpatient Certification Based on my medical assessment, after consideration of the patient's comorbidities, presenting symptoms, or acuity I expect that the services needed warrant INPATIENT care.: Yes I certify that my determination is in accordance with my understanding of Medicare's requirements for reasonable and necessary INPATIENT services [42 CFR 412.3e].: Yes Medical Necessity: Need for IV Antibiotics, Other - IV pain control
[2019-06-13] MEDS: CEFTRIAXONE 2 GM/D5W RTU 2 GM/50 ML RTUPB IV SCH (09:14)
[2019-06-13] MEDS: DOCUSATE SODIUM 100 MG CAPSULE PO SCH ×2 (09:14→18:05)
[2019-06-13] MEDS: HYDROMORPHONE HCL INJ/PF 2 MG/ML AMPULE IV PRN ×3 (09:15→21:24)
[2019-06-14 04:29] LABS: HEMATOCRIT 36.6 % (37.9-51.0); HEMOGLOBIN 12.6 g/dL (13.5-17.0); MEAN CORPUSCULAR HEMOGLOBIN 31.1 pg (27.0-33.4); MEAN CORPUSCULAR HGB CONC 34.5 g/dL (32.0-36.0); MEAN CORPUSCULAR VOLUME 90 fl (80-97); PLATELET COUNT 205 10^3/uL (150-450); RED BLOOD COUNT 4.06 10^6/uL (4.35-5.55); RED CELL DISTRIBUTION WIDTH 14.5 % (11.5-14.0); WHITE BLOOD COUNT 7.9 10^3/uL (4.0-10.5)
[2019-06-14 04:53] LABS: ANION GAP 6 (5-19); BLOOD UREA NITROGEN 6 mg/dL (7-20); CALCIUM 8.8 mg/dL (8.4-10.2); CARBON DIOXIDE 31 mmol/L (22-30); CHLORIDE 97 mmol/L (98-107); GLUCOSE 101 mg/dL (75-110); POTASSIUM 3.7 mmol/L (3.6-5.0)
[2019-06-14] MEDS: PANTOPRAZOLE SODIUM 40 MG TABLET.DR PO SCH ×2 (05:12→17:32)
[2019-06-14] MEDS: HEPARIN SOD (PORCINE) 5,000 UNIT/ML 1 ML VIAL SUBCUT SCH ×3 (05:12→21:18)
[2019-06-14] MEDS: HYDROMORPHONE HCL INJ/PF 2 MG/ML AMPULE IV PRN ×3 (08:44→21:18)
[2019-06-14] MEDS: ONDANSETRON HCL INJ/PF 4 MG/2 ML SDV IV PRN (08:44)
--- NOTE | 2019-06-14 09:02 | PDOC PROGRESS REPORT ---
Subjective Progress Note for:: 06/14/19 Subjective:: 06/12/2019-no complaints this a.m. 06/13/2019-increased pain secondary to pyelonephritis 06/14/2019-continued pain. Reason For Visit: CELLULITIS RIGHT FOOT Physical Exam Vital Signs: Temp Pulse Resp BP Pulse Ox 98.8 F 92 18 106/70 95 06/13/19 23:44 06/14/19 00:25 06/14/19 00:25 06/13/19 23:44 06/14/19 00:25 Intake & Output 06/13/19 06/14/19 06/15/19 06:59 06:59 06:59 Intake Total 3512 1510 Output Total 1375 1500 Balance 2137 10 Weight 67 kg 74 kg General appearance: PRESENT: no acute distress, well-developed, well-nourished Head exam: PRESENT: atraumatic, normocephalic Eye exam: PRESENT: conjunctiva pink, EOMI, PERRLA. ABSENT: scleral icterus Ear exam: PRESENT: normal external ear exam Mouth exam: PRESENT: moist, tongue midline Neck exam: ABSENT: carotid bruit, JVD, lymphadenopathy, thyromegaly Respiratory exam: PRESENT: clear to auscultation patricio. ABSENT: rales, rhonchi, wheezes Cardiovascular exam: PRESENT: RRR. ABSENT: diastolic murmur, rubs, systolic murmur Pulses: PRESENT: normal dorsalis pedis pul Vascular exam: PRESENT: normal capillary refill GI/Abdominal exam: PRESENT: normal bowel sounds, soft. ABSENT: distended, guard ing, mass, organolmegaly, rebound, tenderness Rectal exam: PRESENT: deferred Extremities exam: PRESENT: full ROM. ABSENT: calf tenderness, clubbing, pedal edema Neurological exam: PRESENT: alert, awake, oriented to person, oriented to place, oriented to time, oriented to situation, CN II-XII grossly intact. ABSENT: motor sensory deficit Psychiatric exam: PRESENT: appropriate affect, normal mood. ABSENT: homicidal ideation, suicidal ideation Skin exam: PRESENT: dry, intact, warm. ABSENT: cyanosis, rash Results Laboratory Results: 06/14/19 04:10 06/14/19 04:10 06/14/19 06/14/19 04:10 04:10 WBC 7.9 RBC 4.06 L Hgb 12.6 L Hct 36.6 L MCV 90 MCH 31.1 MCHC 34.5 RDW 14.5 H Plt Count 205 Sodium 133.9 L Potassium 3.7 Chloride 97 L Carbon Dioxide 31 H Anion Gap 6 BUN 6 L Creatinine 0.68 Est GFR ( Amer) > 60 Glucose 101 Calcium 8.8 Magnesium 1.7 Impressions: Chest X-Ray 06/11/19 20:14 IMPRESSION: 1. No acute pulmonary findings. Abdomen/Pelvis CT 06/11/19 20:18 IMPRESSION: 1. Enlarged prostate for age. Multiple prostatic stones. Abnormal thickened urinary bladder wall, acute versus chronic. Incidental single small bladder stone. 2. Single small nonobstructing right kidney stone. Hypodensity in the upper pole of the left kidney may represent a small cyst or scar/old infarction. The enhancement pattern of the kidneys is unusually homogenous. Probably incidental finding because of phase of imaging. Less likely ATN. Suggest clinical correlation. 3. Fecal impaction in the rectum. Mildly dilated colon with increased stool. No evidence for diverticulitis. 4. Atherosclerotic disease. 5. Very subtle nodularity of left adrenal gland is nonspecific and statistically most likely a tiny adenoma. 6. Transitional anatomy in the lumbosacral junction which can be symptomatic as discussed above. Assessment and Plan - Plan Summary Summary: 06/12/2019- Acute pyelonephritis-continue meropenem. Patient has a white count 28,000. Continue to follow labs may change plan of care as appropriate. Patient receiving Nubain for pain states adequate pain control. GERD-continue Protonix 40 g p.o. twice daily Asthma continue bronchodilators as needed Hypertension continue current therapy make change plan of care appropriate. Bipolar disorder-at this time not on any medications. Follow make change plan of care as appropriate. Refer to psychiatry as needed 06/13/2019- acute pyelonephritis-cultures returned showing gram negative rods sensitivity has not returned at this point. White count improved I have DC'd meropenem and put patient on Rocephin 2 g IV daily. Await sensitivity GERD continue Protonix asthma-continue bronchodilators Hypertension stable continue to follow. Bipolar disorder-stable Pain-DC Nubain. Dilaudid 1 mg IV every 3 hours PRN. 06/14/2019-acute pyelonephritis-awaiting culture sensitivity. White count normal at this time. Continue Rocephin GERD-continue Protonix Asthma-continue bronchodilators Bipolar disorder-stable Pain-continue Dilaudid as needed. Patient does have elevated PSA 20. Will consult Dr. Se fermin for further evaluation and treatment. - Time Time Spent with patient: 15-24 minutes - Inpatient Certification Based on my medical assessment, after consideration of the patient's comorbidities, presenting symptoms, or acuity I expect that the services needed warrant INPATIENT care.: Yes I certify that my determination is in accordance with my understanding of Medicare's requirements for reasonable and necessary INPATIENT services [42 CFR 412.3e].: Yes Medical Necessity: Other - IV antibiotics, IV pain control
[2019-06-14] MEDS: DOCUSATE SODIUM 100 MG CAPSULE PO SCH ×2 (09:30→17:32)
[2019-06-14] MEDS: CEFTRIAXONE 2 GM/D5W RTU 2 GM/50 ML RTUPB IV SCH (09:30)
[2019-06-15] MEDS: HYDROMORPHONE HCL INJ/PF 2 MG/ML AMPULE IV PRN ×3 (02:51→12:10)
[2019-06-15 04:33] LABS: HEMATOCRIT 37.5 % (37.9-51.0); HEMOGLOBIN 12.9 g/dL (13.5-17.0); MEAN CORPUSCULAR HGB CONC 34.3 g/dL (32.0-36.0); MEAN CORPUSCULAR VOLUME 91 fl (80-97); PLATELET COUNT 218 10^3/uL (150-450); RED BLOOD COUNT 4.15 10^6/uL (4.35-5.55); RED CELL DISTRIBUTION WIDTH 14.6 % (11.5-14.0); WHITE BLOOD COUNT 7.1 10^3/uL (4.0-10.5)
[2019-06-15] MEDS: PANTOPRAZOLE SODIUM 40 MG TABLET.DR PO SCH ×2 (06:23→21:04)
[2019-06-15] MEDS: HEPARIN SOD (PORCINE) 5,000 UNIT/ML 1 ML VIAL SUBCUT SCH ×3 (06:23→21:10)
--- NOTE | 2019-06-15 08:49 | PDOC DISCHARGE SUMMARY ---
Impression - Admit/DC Date/PCP Admission Date/Primary Care Provider: 06/11/19 23:11 REHAN FERRO MD Discharge Date: 06/15/19 - Discharge Diagnosis (1) Acute pyelonephritis Is this a current diagnosis for this admission?: Yes (2) Asthma Is this a current diagnosis for this admission?: Yes (3) Bipolar disorder Is this a current diagnosis for this admission?: Yes (4) Gastroesophageal reflux disease Is this a current diagnosis for this admission?: Yes (5) Hypertension Is this a current diagnosis for this admission?: Yes - Assessment Summary: 06/12/2019- Acute pyelonephritis-continue meropenem. Patient has a white count 28,000. Continue to follow labs may change plan of care as appropriate. Patient receiving Nubain for pain states adequate pain control. GERD-continue Protonix 40 g p.o. twice daily Asthma continue bronchodilators as needed Hypertension continue current therapy make change plan of care appropriate. Bipolar disorder-at this time not on any medications. Follow make change plan of care as appropriate. Refer to psychiatry as needed 06/13/2019- acute pyelonephritis-cultures returned showing gram negative rods sensitivity has not returned at this point. White count improved I have DC'd meropenem and put patient on Rocephin 2 g IV daily. Await sensitivity GERD continue Protonix asthma-continue bronchodilators Hypertension stable continue to follow. Bipolar disorder-stable Pain-DC Nubain. Dilaudid 1 mg IV every 3 hours PRN. 06/14/2019-acute pyelonephritis-awaiting culture sensitivity. White count normal at this time. Continue Rocephin GERD-continue Protonix Asthma-continue bronchodilators Bipolar disorder-stable Pain-continue Dilaudid as needed. Patient does have elevated PSA 20. Will consult Dr. Se fermin for further evaluation and treatment. - Additional Information Resuscitation Status: Full Code Discharge Diet: As Tolerated Discharge Activity: Activity As Tolerated Referrals: REHAN FERRO MD [Primary Care Provider] - Follow up as needed Prescriptions: Ciprofloxacin HCl [Cipro 500 mg Tablet] 500 mg PO BID #20 tablet Hydrocodone/Acetaminophen [[place] 5-325 mg Tablet] 1 tab PO TIDP PRN #15 tablet PRN Reason: Home Medications: Albuterol Sulfate [Proair HFA Inhalation Aerosol 8.5 gm MDI] 1 puff IH Q4HP PRN 06/12/19 Aripiprazole [Abilify 15 mg Tablet] 15 mg PO DAILY 06/12/19 Gabapentin [Neurontin 100 mg Capsule] 100 mg PO Q12 06/12/19 Methimazole [Tapazole 5 mg Tablet] 5 mg PO BID 06/12/19 Tramadol HCl [Ultram 50 mg Tablet] 50 mg PO Q12HP PRN 06/12/19 Ciprofloxacin HCl [Cipro 500 mg Tablet] 500 mg PO BID #20 tablet 06/15/19 Hydrocodone/Acetaminophen [[place] 5-325 mg Tablet] 1 tab PO TIDP PRN #15 tablet 06/15/19 History of Present Illiness History of Present Illness: SERVANDO MONACO is a 53 year old male who presented to ER with 4-day history of abdominal pain. Hospital Course Hospital Course: Patient was admitted to the ER with 4-day history of abdominal pain. Patient states his pain progress or worsen in the left lower quadrant left flank area for the last 4 days without radiation. Patient has been associated with a subjective fever severe nausea and vomiting. He denies any other associated symptoms. He denies any similar episodes previously. Patient was placed on medical surgical floor treated with IV antibiotics and was found to have acute pyelonephritis. Patient's blood and urine cultures were obtained. Urine culture showed Proteus species and E. coli. Blood cultures have been negative. Sensitivity showed Cipro will cover both species. I will send patient home on Cipro 500 g p.o. twice daily. Patient was also found to have a PSA of [address] of the abdomen pelvis showing enlarged prostate for age and multiple prostatic stones. Patient will need to set up with urology on an outpatient basis as this is a Monday morning I will leave this up to patient's primary care. I will also send patient home [place] for pain 5 mg / 325 mg 1 p.o. 3 times daily as needed pain. Patient is agrees with plan of care. Physical Exam Vital Signs: Temp Pulse Resp BP Pulse Ox 98.7 F 74 17 92/49 L 93 06/14/19 19:31 06/14/19 23:32 06/14/19 23:32 06/14/19 23:32 06/14/19 23:32 Intake & Output 06/14/19 06/15/19 06/16/19 06:59 06:59 06:59 Intake Total 1510 1450 Output Total 1500 2450 Balance 10 -1000 Weight 74 kg 67.2 kg General appearance: PRESENT: no acute distress, well-developed, well-nourished Head exam: PRESENT: atraumatic, normocephalic Eye exam: PRESENT: conjunctiva pink, EOMI, PERRLA. ABSENT: scleral icterus Ear exam: PRESENT: normal external ear exam Mouth exam: PRESENT: moist, tongue midline Neck exam: ABSENT: carotid bruit, JVD, lymphadenopathy, thyromegaly Respiratory exam: PRESENT: clear to auscultation patricio. ABSENT: rales, rhonchi, wheezes Cardiovascular exam: PRESENT: RRR. ABSENT: diastolic murmur, rubs, systolic murmur Pulses: PRESENT: normal dorsalis pedis pul Vascular exam: PRESENT: normal capillary refill GI/Abdominal exam: PRESENT: normal bowel sounds, soft. ABSENT: distended, guarding, mass, organolmegaly, rebound, tenderness Rectal exam: PRESENT: deferred Extremities exam: PRESENT: full ROM. ABSENT: calf tenderness, clubbing, pedal edema Neurological exam: PRESENT: alert, awake, oriented to person, oriented to place, oriented to time, oriented to situation, CN II-XII grossly intact. ABSENT: motor sensory deficit Psychiatric exam: PRESENT: appropriate affect, normal mood. ABSENT: homicidal ideation, suicidal ideation Skin exam: PRESENT: dry, intact, warm. ABSENT: cyanosis, rash Results Laboratory Results: WBC 7.1 10^3/uL (4.0-10.5) 06/15/19 04:20 RBC 4.15 10^6/uL (4.35-5.55) L 06/15/19 04:20 Hgb 12.9 g/dL (13.5-17.0) L 06/15/19 04:20 Hct 37.5 % (37.9-51.0) L 06/15/19 04:20 MCV 91 fl (80-97) 06/15/19 04:20 MCH 31.0 pg (27.0-33.4) 06/15/19 04:20 MCHC 34.3 g/dL (32.0-36.0) 06/15/19 04:20 RDW 14.6 % (11.5-14.0) H 06/15/19 04:20 Plt Count 218 10^3/uL (150-450) 06/15/19 04:20 Lymph % (Auto) Not Reportable 06/11/19 20:15 [place] % (Auto) Not Reportable 06/11/19 20:15 Eos % (Auto) Not Reportable 06/11/19 20:15 Baso % (Auto) Not Reportable 06/11/19 20:15 Absolute Neuts (auto) Not Reportable 06/11/19 20:15 Absolute Lymphs (auto) Not Reportable 06/11/19 20:15 Absolute Monos (auto) Not Reportable 06/11/19 20:15 Absolute Eos (auto) Not Reportable 06/11/19 20:15 Absolute Basos (auto) Not Reportable 06/11/19 20:15 Total Counted 100 06/11/19 20:15 Seg Neutrophils % Not Reportable 06/11/19 20:15 Seg Neuts % (Manual) 90 % (42-78) H 06/11/19 20:15 Lymphocytes % (Manual) 6 % (13-45) L 06/11/19 20:15 Monocytes % (Manual) 4 % (3-13) 06/11/19 20:15 Eosinophils % (Manual) 0 % (0-6) 06/11/19 20:15 Basophils % (Manual) 0 % (0-2) 06/11/19 20:15 Abs Neuts (Manual) 25.7 10^3/uL (1.7-8.2) H 06/11/19 20:15 Abs Lymphs (Manual) 1.7 10^3/uL (0.5-4.7) 06/11/19 20:15 Abs Monocytes (Manual) 1.1 10^3/uL (0.1-1.4) 06/11/19 20:15 Absolute Eos (Manual) 0.0 10^3/uL (0.0-0.6) 06/11/19 20:15 Abs Basophils (Manual) 0.0 10^3/uL (0.0-0.2) 06/11/19 20:15 Toxic Granulation 1+ 06/11/19 20:15 Toxic Vacuolation PRESENT 06/11/19 20:15 Platelet Comment ADEQUATE 06/11/19 20:15 Anisocytosis 1+ 06/11/19 20:15 Sodium 133.9 mmol/L (137-145) L 06/14/19 04:10 Potassium 3.7 mmol/L (3.6-5.0) 06/14/19 04:10 Chloride 97 mmol/L (98-107) L 06/14/19 04:10 Carbon Dioxide 31 mmol/L (22-30) H 06/14/19 04:10 Anion Gap 6 (5-19) 06/14/19 04:10 BUN 6 mg/dL (7-20) L 06/14/19 04:10 Creatinine 0.68 mg/dL (0.52-1.25) 06/14/19 04:10 Est GFR ( Amer) > 60 (>60) 06/14/19 04:10 Est GFR (MDRD) Non-Af > 60 (>60) 06/14/19 04:10 Glucose 101 mg/dL (75-110) 06/14/19 04:10 Lactic Acid 1.2 mmol/L (0.7-2.1) 06/11/19 20:15 Calcium 8.8 mg/dL (8.4-10.2) 06/14/19 04:10 Magnesium 1.9 mg/dL (1.6-2.3) 06/15/19 04:20 Total Bilirubin 1.0 mg/dL (0.2-1.3) 06/11/19 20:15 Direct Bilirubin 0.1 mg/dL (0.0-0.4) 06/11/19 20:15 Neonat Total Bilirubin Not Reportable 06/11/19 20:15 Neonat Direct Bilirubin Not Reportable 06/11/19 20:15 Neonat Indirect Bili Not Reportable 06/11/19 20:15 AST 28 U/L (17-59) 06/11/19 20:15 ALT 16 U/L (<50) 06/11/19 20:15 Alkaline Phosphatase 101 U/L (38-126) 06/11/19 20:15 Total Protein 7.8 g/dL (6.3-8.2) 06/11/19 20:15 Albumin 4.2 g/dL (3.5-5.0) 06/11/19 20:15 Triglycerides 120 mg/dL (<150) 06/13/19 04:05 Cholesterol 148.42 mg/dL (0-200) 06/13/19 04:05 LDL Cholesterol Direct 71 mg/dL (<100) 06/13/19 04:05 VLDL Cholesterol 24.0 mg/dL (10-31) 06/13/19 04:05 HDL Cholesterol 41 mg/dL (>40) 06/13/19 04:05 Lipase 11.9 U/L (23-300) L 06/11/19 20:15 Prostate Specific Ag 20.100 ng/mL (<4.00) H 06/12/19 06:30 TSH 1.37 uIU/mL (0.47-4.68) 06/11/19 20:15 Free T4 1.45 ng/dL (0.78-2.19) 06/11/19 20:15 Free T3 pg/mL 3.40 pg/mL (2.77-5.27) 06/11/19 20:15 Urine Color [place]FER[place] 06/11/19 20:45 Urine Appearance CLOUDY 06/11/19 20:45 Urine pH 6.0 (5.0-9.0) 06/11/19 20:45 Ur Specific [place] 1.024 06/11/19 20:45 Urine Protein 100 mg/dL (NEGATIVE) H 06/11/19 20:45 Urine Glucose (UA) NEGATIVE mg/dL (NEGATIVE) 06/11/19 20:45 Urine Ketones 20 mg/dL (NEGATIVE) H 06/11/19 20:45 Urine Blood MODERATE (NEGATIVE) H 06/11/19 20:45 Urine Nitrite (Reflex) POSITIVE (NEGATIVE) H 06/11/19 20:45 Urine Bilirubin NEGATIVE (NEGATIVE) 06/11/19 20:45 Urine Urobilinogen 2.0 mg/dL (<2.0) H 06/11/19 20:45 Leukocyte Esterase Rfl LARGE (NEGATIVE) H 06/11/19 20:45 Urine RBC (Auto) 12 /HPF 06/11/19 20:45 Urine Bacteria (Auto) 2+ /HPF 06/11/19 20:45 Urine WBC (Reflex) > 182 /HPF 06/11/19 20:45 Urine WBC Clumps MOD /HPF 06/11/19 20:45 Squamous Epi Cells Auto 3 /HPF 06/11/19 20:45 Urine Mucus (Auto) MANY /LPF 10/15/19 20:45 Urine Ascorbic Acid NEGATIVE (NEGATIVE) 06/11/19 20:45 Impressions: Chest X-Ray 06/11/19 20:14 IMPRESSION: 1. No acute pulmonary findings. Abdomen/Pelvis CT 06/11/19 20:18 IMPRESSION: 1. Enlarged prostate for age. Multiple prostatic stones. Abnormal thickened urinary bladder wall, acute versus chronic. Incidental single small bladder stone. 2. Single small nonobstructing right kidney stone. Hypodensity in the upper pole of the left kidney may represent a small cyst or scar/old infarction. The enhancement pattern of the kidneys is unusually homogenous. Probably incidental finding because of phase of imaging. Less likely ATN. Suggest clinical correlation. 3. Fecal impaction in the rectum. Mildly dilated colon with increased stool. No evidence for diverticulitis. 4. Atherosclerotic disease. 5. Very subtle nodularity of left adrenal gland is nonspecific and statistically most likely a tiny adenoma. 6. Transitional anatomy in the lumbosacral junction which can be symptomatic as discussed above. Plan Time Spent: Greater than 30 Minutes Stroke Is this a Stroke Patient?: No Acute Heart Failure - Is this a Heart Failure Patient?: No
--- NOTE | 2019-06-15 11:44 | PDOC CONSULTATION ---
Consultation Consult Date: 06/15/19 Attending physician:: TANVIR CARRENO Provider Consulted: SABINA CHAHAL Consult reason:: Patient with elevated PSA enlarged prostate History of Present Illness Admission Date/PCP: 06/11/19 23:11 REHAN FERRO MD Patient complains of: Abdominal pain History of Present Illness: SERVANDO MONACO is a 53 year old male who originally presented with abdominal pain, left lower quadrant as well as fever, ultimately he had CT of the abdomen pelvis, this indicated enlarged prostate, he was treated for infection and has improved, however because of the enlarged prostate PSA was drawn and it came back at 20. Because of the concern of possible prostatic carcinoma, we were consulted. Otherwise on CT of the abdomen pelvis there is no retroperitoneal adenopathy or bone lesions that were noted. Past Medical History Cardiac Medical History: Reports: Hypertension Denies: Coronary Artery Disease, Myocardial Infarction Pulmonary Medical History: Reports: Asthma Denies: Bronchitis, Chronic Obstructive Pulmonary Disease (COPD), Pneumonia EENT Medical History: Denies: Cataracts, Ears - Hearing aids Neurological Medical History: Denies: Hemorrhagic CVA, Ischemic CVA, Seizures Endocrine Medical History: Denies: Diabetes Mellitus Type 1, Diabetes Mellitus Type 2, Hyperthyroidism, Hypothyroidism, Obesity Renal/ Medical History: Denies: Chronic Kidney Disease, Nephrolithiasis Malignancy Medical History: Reports: None GI Medical History: Reports: Gastroesophageal Reflux Disease Denies: Cirrhosis, Hepatitis Musculoskeltal Medical History: Denies: Arthritis, Gout Skin Medical History: Denies: Eczema, Psoriasis Psychiatric Medical History: Reports: Bipolar Disorder, Depression Denies: Alcohol Dependency, Substance Abuse, Tobacco Dependency Traumatic Medical History: Reports: None Hematology: Reports: Anemia Denies: Bleeding Tendencies Infectious Medical History: Reports: None Past Surgical History Past Surgical History: Reports: None Social History Lives with: Family Smoking Status: Never Smoker Electronic Cigarette use?: No Frequency of Alcohol Use: None Hx Recreational Drug Use: No Drugs: None Hx Prescription Drug Abuse: No - Advance Directive Resuscitation Status: Full Code Family History Family History: Hypertension, Other - Asthma Parental Family History Reviewed: Yes Children Family History Reviewed: Yes Sibling(s) Family History Reviewed.: Yes Medication/Allergy Home Medications: Albuterol Sulfate [Proair HFA Inhalation Aerosol 8.5 gm MDI] 1 puff IH Q4HP PRN 06/12/19 Aripiprazole [Abilify 15 mg Tablet] 15 mg PO DAILY 06/12/19 Gabapentin [Neurontin 100 mg Capsule] 100 mg PO Q12 06/12/19 Methimazole [Tapazole 5 mg Tablet] 5 mg PO BID 06/12/19 Tramadol HCl [Ultram 50 mg Tablet] 50 mg PO Q12HP PRN 06/12/19 Ciprofloxacin HCl [Cipro 500 mg Tablet] 500 mg PO BID #20 tablet 06/15/19 Hydrocodone/Acetaminophen [[place] 5-325 mg Tablet] 1 tab PO TIDP PRN #15 tablet 06/15/19 Allergies/Adverse Reactions: No Known Allergies Allergy (Verified 12/10/18 10:51) Review of Systems Constitutional: ABSENT: chills, fever(s), headache(s), weight gain, weight loss Eyes: ABSENT: visual disturbances Ears: ABSENT: hearing changes Cardiovascular: ABSENT: chest pain, dyspnea on exertion, edema, orthropnea, palpitations Respiratory: ABSENT: cough, hemoptysis Gastrointestinal: ABSENT: abdominal pain, constipation, diarrhea, hematemesis, hematochezia, nausea, vomiting Genitourinary: ABSENT: dysuria, hematuria Musculoskeletal: ABSENT: joint swelling Integumentary: ABSENT: rash, wounds Neurological: ABSENT: abnormal gait, abnormal speech, confusion, dizziness, focal weakness, syncope Psychiatric: ABSENT: anxiety, depression, homidical ideation, suicidal ideation Endocrine: ABSENT: cold intolerance, heat intolerance, polydipsia, polyuria Hematologic/Lymphatic: ABSENT: easy bleeding, easy bruising Physical Exam Vital Signs: Temp Pulse Resp BP Pulse Ox 98.5 F 79 19 118/66 96 06/15/19 07:39 06/15/19 07:39 06/15/19 07:39 06/15/19 07:39 06/15/19 07:39 Intake & Output 06/14/19 06/15/19 06/16/19 06:59 06:59 06:59 Intake Total 1510 1450 Output Total 1500 2450 Balance 10 -1000 Weight 74 kg 67.2 kg General appearance: PRESENT: no acute distress, well-developed, well-nourished Head exam: PRESENT: atraumatic, normocephalic Eye exam: PRESENT: conjunctiva pink, EOMI, PERRLA. ABSENT: scleral icterus Ear exam: PRESENT: normal external ear exam Mouth exam: PRESENT: moist, tongue midline Neck exam: ABSENT: carotid bruit, JVD, lymphadenopathy, thyromegaly Respiratory exam: PRESENT: clear to auscultation patricio. ABSENT: rales, rhonchi, wheezes Cardiovascular exam: PRESENT: RRR. ABSENT: diastolic murmur, rubs, systolic murmur Pulses: PRESENT: normal dorsalis pedis pul Vascular exam: PRESENT: normal capillary refill GI/Abdominal exam: PRESENT: normal bowel sounds, soft. ABSENT: distended, guarding, mass, organolmegaly, rebound, tenderness Rectal exam: PRESENT: deferred Extremities exam: PRESENT: full ROM. ABSENT: calf tenderness, clubbing, pedal edema Neurological exam: PRESENT: alert, awake, oriented to person, oriented to place, oriented to time, oriented to situation, CN II-XII grossly intact. ABSENT: motor sensory deficit Psychiatric exam: PRESENT: appropriate affect, normal mood. ABSENT: homicidal ideation, suicidal ideation Skin exam: PRESENT: dry, intact, warm. ABSENT: cyanosis, rash Results Laboratory Results: 06/15/19 04:20 06/14/19 04:10 06/15/19 06/15/19 04:20 04:20 WBC 7.1 RBC 4.15 L Hgb 12.9 L Hct 37.5 L MCV 91 MCH 31.0 MCHC 34.3 RDW 14.6 H Plt Count 218 Magnesium 1.9 06/11/19 20:45 Clean Catch Midstream Urine Culture - Final Escherichia Coli Proteus Mirabilis Impressions: Chest X-Ray 06/11/19 20:14 IMPRESSION: 1. No acute pulmonary findings. Abdomen/Pelvis CT 06/11/19 20:18 IMPRESSION: 1. Enlarged prostate for age. Multiple prostatic stones. Abnormal thickened urinary bladder wall, acute versus chronic. Incidental single small bladder stone. 2. Single small nonobstructing right kidney stone. Hypodensity in the upper pole of the left kidney may represent a small cyst or scar/old infarction. The enhancement pattern of the kidneys is unusually homogenous. Probably incidental finding because of phase of imaging. Less likely ATN. Suggest clinical correlation. 3. Fecal impaction in the rectum. Mildly dilated colon with increased stool. No evidence for diverticulitis. 4. Atherosclerotic disease. 5. Very subtle nodularity of left adrenal gland is nonspecific and statistically most likely a tiny adenoma. 6. Transitional anatomy in the lumbosacral junction which can be symptomatic as discussed above. Status: Image reviewed by me Assessment & Plan - Diagnosis (1) Elevated PSA, greater than or equal to 20 ng/ml Is this a current diagnosis for this admission?: Yes Plan: Elevated PSA with enlarged prostate overall concerning for primary prostatic carcinoma, does not appear to have metastatic disease on imaging thus far, next step would be to get patient into urology for prostate biopsy. We will help with that as an outpatient. I will see him as an outpatient and arrange that for him. We can arrange for other staging if needed once we have the biopsy r esults. - Time Time Spent: Greater than 70 Minutes - Inpatient Certification Based on my medical assessment, after consideration of the patient's comorbidities, presenting symptoms, or acuity I expect that the services needed warrant INPATIENT care.: Yes I certify that my determination is in accordance with my understanding of Medicare's requirements for reasonable and necessary INPATIENT services [42 CFR 412.3e].: Yes Medical Necessity: Risk of Complication if Not Cared For in Hospital
[2019-06-15] MEDS: CEFTRIAXONE 2 GM/D5W RTU 2 GM/50 ML RTUPB IV SCH (13:53)
[2019-06-15] MEDS: DOCUSATE SODIUM 100 MG CAPSULE PO SCH ×2 (13:54→21:04)
[2019-06-15] MEDS: OXYCODONE-ACETAMINOPHEN 5-325 MG TABLET PO PRN (21:04)
[2019-06-16] MEDS: PANTOPRAZOLE SODIUM 40 MG TABLET.DR PO SCH (05:57)
[2019-06-16] MEDS: HEPARIN SOD (PORCINE) 5,000 UNIT/ML 1 ML VIAL SUBCUT SCH (05:57)
[2019-06-16] MEDS: OXYCODONE-ACETAMINOPHEN 5-325 MG TABLET PO PRN (06:24)
[2019-06-16 10:00] VITALS: BP 136/69
== END 2019-06-16 10:48 | disposition home or self-care (01) | DRG 690 ==
LOC: ER 19:33 → EH 23:11 → 4S 06-12 01:42
PROVIDERS: ADMIT Emergency Medicine; ATTEND Emergency Medicine
PROC: 3E0234Z Introduction of Serum, Toxoid and Vaccine into Muscle, Percutaneous Approach (ICD-10-PCS; principal; 2019-06-16)
DX: N10 Acute pyelonephritis (principal); K21.9 Gastro-esophageal reflux disease without esophagitis; J45.20 Mild intermittent asthma, uncomplicated; I10 Essential (primary) hypertension; R97.20 Elevated prostate specific antigen [PSA]; R11.10 Vomiting, unspecified; F31.9 Bipolar disorder, unspecified; Z90.5 Acquired absence of kidney; Z23 Encounter for immunization
CPT/HCPCS: 36415; 71045; 74177; 80048; 80053; 80061; 81001; 83605; 83690; 83735; 84153; 84439; 84443; 84481; 85025; 85027; 87040; 87086; 87088; 87186; 90686; 93005; 93010; 96361; 96365; 96375; 99285; J0696; J1170; J1644; J2185; J2300; J2405; J2543; J3490; J7030; J7120

== ENCOUNTER → 2020-05-15 | Outpatient (CLI) | payer MEDICARE, MEDICAID ==
--- NOTE | 2020-05-15 12:33 | RADIOLOGY REPORT (SQ) ---
EXAM DESCRIPTION: LUMBAR SPINE COMPLETE IMAGES COMPLETED DATE/TIME: 05/15/2020 10:58 am REASON FOR STUDY: LUMBAGO WITH SCIATICA, LEFT SIDE M54.42 LUMBAGO WITH SCIATICA, LEFT SIDE COMPARISON: None. NUMBER OF VIEWS: Five views including obliques. TECHNIQUE: AP, lateral, oblique, and sacral radiographic images acquired of the lumbar spine. LIMITATIONS: None. FINDINGS: MINERALIZATION: Normal. SEGMENTATION: Normal. No transitional anatomy. ALIGNMENT: Normal. VERTEBRAE: Maintained height. No fracture or worrisome bone lesion. DISCS: There is narrowing of the L5-S1 disc. POSTERIOR ELEMENTS: Hypertrophic facet changes from L3-S1. HARDWARE: None in the spine. PARASPINAL SOFT TISSUES: Normal. PELVIS: Intact as visualized. No fractures or worrisome bone lesions. SI joints intact. OTHER: No other significant finding. IMPRESSION: Degenerative disc disease. Facet arthropathy. TECHNICAL DOCUMENTATION: JOB ID: [id number] 2010 [employer]- All Rights Reserved Reading location - IP/workstation name: [email or web address]
== END ==
LOC: RAD 10:18
PROVIDERS: ATTEND Family Medicine
DX: M51.16 Intervertebral disc disorders with radiculopathy, lumbar region (principal)
CPT/HCPCS: 72110

== ENCOUNTER → 2020-07-02 | Outpatient (CLI) | payer MEDICARE, MEDICAID ==
--- NOTE | 2020-07-02 15:09 | RADIOLOGY REPORT (SQ) ---
EXAM DESCRIPTION: SHOULDER LEFT 2 OR MORE VIEWS IMAGES COMPLETED DATE/TIME: 07/02/2020 2:57 pm REASON FOR STUDY: PAIN IN LEFT SHOULDER M25.512 PAIN IN LEFT SHOULDER M62.838 OTHER MUSCLE SPASM COMPARISON: None. NUMBER OF VIEWS: Three views. TECHNIQUE: Internal rotation, external rotation, and Y view images acquired of the left shoulder. LIMITATIONS: None. FINDINGS: MINERALIZATION: Normal. BONES: No acute fracture. No worrisome bone lesions. JOINTS: Joint space narrowing in the AC joint. Glenohumeral joint is unremarkable. VISUALIZED LUNGS AND RIBS: No pneumothorax. No rib fracture. SOFT TISSUES: No radiopaque foreign body. OTHER: No other significant finding. IMPRESSION: Degenerative changes in the AC joint. No acute findings. TECHNICAL DOCUMENTATION: JOB ID: [id number] 2010 [employer]- All Rights Reserved Reading location - IP/workstation name: [email or web address]
--- NOTE | 2020-07-02 15:09 | RADIOLOGY REPORT (SQ) ---
EXAM DESCRIPTION: C SP 4 OR 5 VIEWS IMAGES COMPLETED DATE/TIME: 07/02/2020 2:57 pm REASON FOR STUDY: OTHER MUSCLE SPASM M25.512 PAIN IN LEFT SHOULDER M62.838 OTHER MUSCLE SPASM COMPARISON: None. NUMBER OF VIEWS: Five views including obliques. TECHNIQUE: AP, lateral, obliques and odontoid radiographic images acquired of the cervical spine. LIMITATIONS: None. FINDINGS: MINERALIZATION: Normal. ALIGNMENT: Loss of the normal cervical doses. VERTEBRAE: Maintained height. No fracture or worrisome bone lesion. DISCS: Multilevel disc space narrowing with osteophytes. POSTERIOR ELEMENTS: Pedicles and facets are intact. No posterior arch defects. Facet arthropathy is present. FORAMINA: Narrowed at the levels of maximal disc and facet disease. HARDWARE: None in the spine. PARASPINAL SOFT TISSUES: Normal. OTHER: No other significant finding. IMPRESSION: SPONDYLOSIS WITHOUT BONE LESION OR FRACTURE. TECHNICAL DOCUMENTATION: JOB ID: [id number] 2010 [employer]- All Rights Reserved Reading location - IP/workstation name: [email or web address]
== END ==
LOC: OD 14:27
PROVIDERS: ATTEND Family Medicine
DX: M19.012 Primary osteoarthritis, left shoulder (principal); M25.512 Pain in left shoulder; M47.812 Spondylosis without myelopathy or radiculopathy, cervical region; M62.838 Other muscle spasm
CPT/HCPCS: 72050